=== PATIENT | male | born 1960 | race Caucasian/White ===

== ENCOUNTER 2017-07-30 08:24 | Day surgery (SDC) | payer BC ==
[2017-07-30] MEDS ORDERED: LIDOCAINE 2% MDV (20MG/ML) 20ML VIAL IV ONE (08:25)
[2017-07-30] MEDS ORDERED: MIDAZOLAM HCL 2MG/2ML VIAL IV ONE (08:25)
[2017-07-30] MEDS ORDERED: PROPOFOL 10 MG/ML VIAL IV ONE (08:25)
--- NOTE | 2017-07-31 12:31 | Operative Note ---
Dictated by Dr. Chris Powell DATE OF SURGERY: 07/30/2017 PREOPERATIVE DIAGNOSIS: Screening for family history of colon cancer. POSTOPERATIVE DIAGNOSES: 1. Mild left-sided diverticulosis. 2. History of prior sigmoid resection with side-to-end anastomosis. 3. Otherwise normal colonoscopy to cecum. OPERATION: COLONOSCOPY. ENDOSCOPIST: Patrick Newell DO HELMET HAT PUNCHER: Dr. Chris Powell ANESTHESIA: Anesthesia as performed by the anesthesia department. COMPLICATIONS: None. INDICATIONS: The patient is a 57-year-old male with prior history of diverticulitis, status post sigmoid resection and family history of colon cancer with father at age around 50. The patient denies any rectal bleeding, weight loss, or changes in bowel habits. The patient presents for colon cancer screening. PROCEDURE: The procedure was thoroughly explained to the patient including risks, benefits, and alternatives. The patient had opportunity to have his questions answered. Patient agreed to the procedure and signed written consent. The patient was brought to the endoscopy suite and was placed on the left lateral decubitus position. Anesthesia was begun. Procedure begun with introduction of a well-lubricated Olympus [id number] colonoscope to rectum and was advanced all the way to cecum where appendiceal orifice and ileocecal valve were identified. Overall quality of the prep was good. Scope was then withdrawn slowly from cecum, ascending colon, transverse colon, descending colon and sigmoid colon where prior side-to-end anastomosis from prior resection was identified. There appeared to be some mild diverticulosis in the left side of the colon. The resection site appeared normal without any evidence of stricture or mass. Scope was then withdrawn farther into the rectum, which appeared unremarkable and was retroflexed to evalute the anal canal, which appeared normal as well. Scope was straightened back and was withdrawn completely. Patient tolerated the procedure well without any immediate complications. RECOMMENDATION: 1. Continue on high-fiber diet. 2. Repeat colonoscopy in 5 years given family history. As always, thank you for allowing me to participate in the care of your patient. CC: AB Vazquez
== END 2017-07-30 09:50 | disposition home or self-care (01) ==
LOC: HOP 08:24
PROVIDERS: ATTEND Internal Medicine Gastroenterology
DX: Z12.11 Encounter for screening for malignant neoplasm of colon (principal); Z80.0 Family history of malignant neoplasm of digestive organs; K57.30 Diverticulosis of large intestine without perforation or abscess without bleeding
CPT/HCPCS: 00812; G0105